=== PATIENT | female | born 1930 ===

== ENCOUNTER 2016-10-23 06:24 | Emergency (ER) | payer MEDICARE, OTHER ==
[~2016-10-23] VITALS: Ht 167.6 cm; Wt 80.0 kg
[2016-10-23 06:32] VITALS: TEMP 97.8; Ht 167.6 cm; Wt 80.0 kg
[2016-10-23] MEDS ORDERED: FAMOTIDINE 20 MG INJ IV STA (06:36)
[2016-10-23] MEDS ORDERED: ONDANSETRON 4 MG INJ IV STA (06:36)
--- NOTE | 2016-10-23 06:50 | ERD ---
ER Documentation Chief Complaint Date/Time DATE: 10/23/16 TIME: 06:48 Chief Complaint BIB RA 39 FOR EVAL GENERALIZED AP HPI Patient is an 86-year-old female with history of "gastric spasms "who presents with migratory abdominal pain since last night. She reports having history of similar episodes in the past. She denies vomiting, fever, diarrhea. ROS All systems reviewed and are negative except as per history of present illness. Medications Home Meds Active Scripts Famotidine* (Famotidine*) 20 Mg Tablet, 20 MG PO DAILY, #30 TAB Prov:CARIDAD JEFFERSON MD 10/23/16 Dicyclomine Hcl* (Bentyl*) 10 Mg Capsule, 10 MG PO QID, #20 CAP Prov:CARIDAD JEFFERSON MD 10/23/16 Allergies Allergies: Coded Allergies: Penicillins (Verified Allergy, Severe, 10/23/16) PMhx/Soc Past medical history: Intestinal cancer, gastric spasms Past surgical history: Cholecystectomy Social history: Denies tobacco, alcohol or illicit drugs. FmHx Family History: No coronary disease, No diabetes Physical Exam Vitals Vital Signs Date Time Temp Pulse Resp B/P Pulse Ox O2 Delivery O2 Flow Rate FiO2 10/23/16 07:50 74 16 135/76 Mechanical Ventilator 10/23/16 06:32 97.8 49 22 157/64 98 Room Air 10/23/16 06:32 97.6 19 97 Physical Exam Const: Alert, appears mildly uncomfortable Head: Atraumatic Eyes: Normal Conjunctiva, no pallor, no icterus ENT: Normal External Ears, Nose and Mouth. Tacky mucous membranes Neck: Full range of motion..~ No meningismus. Resp: Clear to auscultation bilaterally, no wheezes, no rales Cardio: Regular rate and rhythm, no murmurs Abd: Soft, non tender, non distended. Normal bowel sounds Skin: No petechiae or rashes Back: No midline or flank tenderness Ext: No cyanosis, or edema Neur: Awake and alert, cranial nerves II through XII intact bilaterally, strength and sensation full in 4 extremities per Psych: Normal Mood and Affect Result Diagram: 10/23/1665410/23/1655 Results 24 hrs Laboratory Tests Test 10/23/16 06:55 10/23/16 08:57 White Blood Count 8.710^3/ul Red Blood Count 4.1910^6/ul Hemoglobin 13.8g/dl Hematocrit 41.7% Mean Corpuscular Volume 99.5fl Mean Corpuscular Hemoglobin 32.9pg Mean Corpuscular Hemoglobin Concent 33.1g/dl Red Cell Distribution Width 13.5% Platelet Count 05962^3/UL Mean Platelet Volume 10.5fl Neutrophils % 75.6% Lymphocytes % 14.8% Monocytes % 7.9% Eosinophils % 0.9% Basophils % 0.2% Nucleated Red Blood Cells % 0.0/100WBC Neutrophils # 6.610^3/ul Lymphocytes # 1.310^3/ul Monocytes # 0.710^3/ul Eosinophils # 0.110^3/ul Basophils # 0.010^3/ul Nucleated Red Blood Cells # 0.010^3/ul Sodium Level 139mmol/L Potassium Level 3.7mmol/L Chloride Level 101mmol/L Carbon Dioxide Level 27mmol/L Anion Gap 15 Blood Urea Nitrogen 20mg/dl Creatinine 0.86mg/dl Glucose Level 126mg/dl Lactic Acid Level 1.7mmol/L Calcium Level 9.7mg/dl Total Bilirubin 1.5mg/dl Direct Bilirubin 0.00mg/dl Indirect Bilirubin 1.5mg/dl Aspartate Amino Transf (AST/SGOT) 221IU/L Alanine Aminotransferase (ALT/SGPT) 130IU/L Alkaline Phosphatase 91IU/L Total Protein 7.7g/dl Albumin 4.4g/dl Globulin 3.30g/dl Albumin/Globulin Ratio 1.33 Lipase 92U/L Bedside Urine pH (LAB) 6.5 Bedside Urine Protein (LAB) Trace Bedside Urine Glucose (UA) Negative Bedside Urine Ketones (LAB) Negative Bedside Urine Blood Trace-intact Bedside Urine Nitrite (LAB) Negative Bedside Urine Leukocyte Esterase (L Negative Current Medications Medications (Trade) Dose Ordered Sig/Agapito Route PRN Reason Start Time Stop Time Status Last Admin Dose Admin Ondansetron HCl (Zofran Inj) 4 mg ONCE STAT IV 10/23/16 06:36 10/23/16 06:38 DC 10/23/16 07:00 Famotidine (Pepcid Iv) 20 mg ONCE STAT IV 10/23/16 06:36 10/23/16 06:38 DC 10/23/16 07:00 Dicyclomine HCl 10 mg 10 mg ONCE ONCE IM 5/12/17 07:00 10/23/16 07:01 DC Sodium Chloride (NS) 500 ml @ 500 mls/hr Q1H ONCE IV 10/23/16 07:30 10/23/16 08:29 DC 10/23/16 07:10 Procedures/MDM EKG read by me: Time 652, rate 50 Rhythm: Sinus bradycardia with first-degree AV block Fosters: Normal Intervals: First-degree AV block ST-T waves: T-wave inversion aVL only Ectopy: No Q-waves: No Impression: Bradycardia, first-degree AV block MDM: Patient is a 86-year-old female with history of recurrent epigastric pain that occurs approximately once every 5 months. She is been to the hospital previously with the same symptoms and they resolved spontaneously or with medication. Patient is status post cholecystectomy. Labs and UA are unremarkable. Patient was given Bentyl and Pepcid and on reassessment states that her pain is almost completely resolved. She is tolerating oral intake. She has completely benign serial examinations. There is no suggestion of bowel ischemia by history or labs. X-ray shows no signs of obstruction. EKG is nonischemic. Patient will be discharged home with prescriptions for Pepcid and Bentyl, and advised on return precautions if symptoms recur. Departure Diagnosis: Primary Impression: Abdominal pain Condition: CARIDAD Shelton MD October 23, 2016 06:50
[2016-10-23] MEDS ORDERED: DICYCLOMINE 20 MG INJ IM ONE (07:00)
[2016-10-23 07:07] LABS: ADD SCAN DIFF NO
[2016-10-23 07:13] LABS: BASOPHILS % 0.2 % (0.0-2.0); EOSINOPHILS # 0.1 10^3/ul (0.0-0.5); EOSINOPHILS % 0.9 % (0.0-7.0); HEMATOCRIT 41.7 % (37.0-47.0); HEMOGLOBIN 13.8 g/dl (12.0-16.0); LYMPHOCYTES # 1.3 10^3/ul (0.8-2.9); LYMPHOCYTES % 14.8 % (15.0-51.0); MEAN CORPUSCULAR HEMOGLOBIN 32.9 pg (29.0-33.0); MEAN CORPUSCULAR HGB CONC 33.1 g/dl (32.0-37.0); MEAN CORPUSCULAR VOLUME 99.5 fl (82.0-101.0); MEAN PLATELET VOLUME 10.5 fl (7.4-10.4); MONOCYTE # 0.7 10^3/ul (0.3-0.9); MONOCYTES % 7.9 % (0.0-11.0); NEUTROPHIL # 6.6 10^3/ul (1.6-7.5); NEUTROPHILS % 75.6 % (39.0-77.0); PLATELET COUNT 218 10^3/UL (140-415); RED BLOOD COUNT 4.19 10^6/ul (4.20-5.40); RED CELL DISTRIBUTION WIDTH 13.5 % (11.5-14.5); WHITE BLOOD COUNT 8.7 10^3/ul (4.8-10.8)
[2016-10-23 07:25] LABS: ALBUMIN 4.4 g/dl (3.3-4.9)
[2016-10-23 07:26] LABS: POTASSIUM 3.7 mmol/L (3.5-5.1)
[2016-10-23 07:27] LABS: BILIRUBIN,INDIRECT 1.5 mg/dl (0-1.1); CREATININE 0.86 mg/dl (0.44-1.00)
[2016-10-23 07:28] LABS: ALBUMIN/GLOBULIN RATIO 1.33; BILIRUBIN,TOTAL 1.5 mg/dl (0.2-1.3); CALCIUM 9.7 mg/dl (8.4-10.2); TOTAL PROTEIN 7.7 g/dl (6.1-8.1)
[2016-10-23] MEDS ORDERED: SOD CHLORIDE 0.9% 500 ML IV ONE (07:30)
--- NOTE | 2016-10-23 08:51 | RADRPT ---
PROCEDURE: XR Abdomen. CLINICAL INDICATION: Abdominal pain. TECHNIQUE: AP abdomen x-ray. COMPARISON: None. FINDINGS: The bowel gas pattern is normal. There is no evidence of obstruction. There are no abnormal calcific ations overlying the urinary tracts. There are degenerative osteophytes in the thoracic spine. Ther e are clips in the right upper quadrant. The aorta is ectatic. The left ventricle is enlarged.. Th ere is moderate fecal material in the transverse colon and scattered fecal material in the descendin g colon. IMPRESSION: 1. No evidence of a mechanical bowel obstruction. 2. Status post cholecystectomy. 3. Cardiomegaly. RPTAT:AAJJ . Physician Wade Date Time Electronically viewed and signed by Erik Ballesteros Physician on 10/23/2016 08:50 OUMOU/
[2016-10-23 08:56] LABS: URINE BLOOD (Dip) POC Trace-intact (NEGATIVE)
[2016-10-23] MEDS ORDERED: DICY10CA60 PO (09:04)
[2016-10-23] MEDS ORDERED: FAMO20TA18 PO (09:04)
[2016-10-23 09:10] LABS: ADD UMIC YES; URINE BILIRUBIN (Dip) NEGATIVE (NEGATIVE); URINE BLOOD (Dip) TRACE (NEGATIVE); URINE COLOR LT. YELLOW (YELLOW); URINE GLUCOSE (Dip) NEGATIVE (NEGATIVE); URINE KETONES (Dip) NEGATIVE (NEGATIVE); URINE LEUKOCYTE ESTERASE (Dip) NEGATIVE (NEGATIVE); URINE NITRITE (Dip) NEGATIVE (NEGATIVE); URINE TOTAL PROTEIN (Dip) NEGATIVE (NEGATIVE); URINE UROBILINOGEN (Dip) 1.0 E.U./dL (0.1-1.0)
[2016-10-23 09:19] LABS: BACTERIA,URINE MANY
[2016-10-23 10:02] VITALS: BP 143/52; PULSE 51; RESP 14
== END 2016-10-23 10:24 | disposition home or self-care (01) ==
LOC: E/R 06:24
DX: R10.84 Generalized abdominal pain (principal); Z85.038 Personal history of other malignant neoplasm of large intestine
CPT/HCPCS: 74010; 80053; 81001; 81003; 83605; 83690; 85025; 93005; J0500; J2405; J7040; 36415; 96372; 96374; 96375